=== PATIENT | female | born 1975 | race Caucasian/White ===

== ENCOUNTER → 2016-02-17 | Outpatient (CLI) | payer OTHER ==
[2016-02-17 10:03] LABS: CHOLESTEROL 193.14 mg/dL (0-200); Direct HDL 66 mg/dL (>40); TRIGLYCERIDES 70 mg/dL (<150)
[2016-02-17 10:17] LABS: DIRECT LDL 100 mg/dL (<100)
[2016-02-19 07:56] LABS: HOMOCYST(E)INE PLASMA 7.5 umol/L (0.0-15.0)
== END ==
LOC: OD 08:37
DX: E05.90 Thyrotoxicosis, unspecified without thyrotoxic crisis or storm (principal); F41.9 Anxiety disorder, unspecified; R00.0 Tachycardia, unspecified; E56.9 Vitamin deficiency, unspecified
CPT/HCPCS: 36415; 80061; 83090; 83921

== ENCOUNTER 2016-02-20 05:10 | Emergency (ER) | payer MEDICAID, OTHER ==
[2016-02-20 05:20] VITALS: BP 101/80
--- NOTE | 2016-02-20 06:57 | ER Document Report ---
ED General <ERICH LOJA - Last Filed: 02/20/16 07:19> - General Mode of Arrival: Ambulatory Information source: Patient TRAVEL OUTSIDE OF THE [place] IN LAST 30 DAYS: No - HPI Patient complains to provider of: Arm Pain Onset: Just prior to arrival Onset/Duration: Sudden Associated symptoms: Chest pain, Vomiting Similar symptoms previously: Yes Recently seen / treated by doctor: Yes - [facility] 4x since 02/11/2016 <VICKI ARITA - Last Filed: 02/20/16 07:30> - General Chief Complaint: Arm Pain Stated Complaint: RIGHT SHOULDER/ELBOW PAIN Notes: Patient is a 40-year-old female presenting to the emergency department concerned of the arm pain that extends from her right elbow into her right hand onset early this morning. Patient states the elbow was red and swollen, and the pain is also in her shoulder. Patient mentioned that yesterday she was having intermittent nausea and chest pain, and also that she has been burping more often. Patient eventually admits that her fear is that she is having a heart attack. Patient started Citalopram on Tuesday, and thought maybe her symptoms were due to the new medication. Patient denies every risk factor for heart attack, and finally mentioned that she thinks she might have a heart attack due to stress from trying to raise her four children. Patient has been seen here four times since 02/11/2016 for similar concerns. (VICKI ARITA) - Related Data Allergies/Adverse Reactions: esomeprazole [From Nexium] Allergy (Verified 02/20/16 05:20) latex [Latex] Allergy (Verified 02/20/16 05:20) Hives, difficulty breathing levofloxacin [From Levaquin] Allergy (Verified 02/20/16 05:20) moxifloxacin HCl [From Avelox] Allergy (Verified 02/20/16 05:20) problems with joints, throat swelling erythromycin base [Erythromycin Base] Adverse Reaction (Verified 02/20/16 05:20) hives/vomitting Past Medical History - General Information source: Patient - Social History Smoking Status: Never Smoker Chew tobacco use (# tins/day): No Frequency of alcohol use: None Drug Abuse: None Family History: Reviewed & Not Pertinent, Hyperlipidemia, Hypertension Patient has suicidal ideation: No Patient has homicidal ideation: No Neurological Medical History: Reports: Hx Migraine Endocrine Medical History: Reports: Hx Hyperthyroidism Renal/ Medical History: Reports: Hx Ovarian Cysts GI Medical History: Reports: Hx Gastroesophageal Reflux Disease Psychiatric Medical History: Reports: Hx Anxiety Past Surgical History: Reports: Hx Appendectomy, Hx Gynecologic Surgery - laparoscopy for right ovarian cyst - Immunizations Immunizations up to date: Yes Hx Diphtheria, Pertussis, Tetanus Vaccination: Yes <VICKI ARITA - Last Filed: 02/20/16 07:30> Review of Systems - Review of Systems Constitutional: No symptoms reported EENT: No symptoms reported Cardiovascular: See HPI, Chest pain Respiratory: No symptoms reported Gastrointestinal: See HPI, Nausea Genitourinary: No symptoms reported Female Genitourinary: No symptoms reported Musculoskeletal: See HPI, Other - Right Forearm Pain Skin: No symptoms reported Hematologic/Lymphatic: No symptoms reported Neurological/Psychological: See HPI, Other - Increased Stress -: Yes All other systems reviewed and negative <VICKI ARITA - Last Filed: 02/20/16 07:30> Physical Exam - Vital signs Interpretation: Normal - General General appearance: Appears well, Alert - HEENT Head: Normocephalic, Atraumatic Eyes: Normal Pupils: PERRL - Respiratory Respiratory status: No respiratory distress Chest status: Nontender Breath sounds: Normal Chest palpation: Normal - Cardiovascular Rhythm: Regular Heart sounds: Normal auscultation Murmur: No - Abdominal Inspection: Normal Distension: No distension Bowel sounds: Normal Tenderness: Nontender Organomegaly: No organomegaly - Back Back: Normal, Nontender - Extremities General upper extremity: Normal inspection, Nontender, Normal color, Normal ROM , Normal temperature, Other - No redness or swelling of R. elbow, forearm, hand.. No: Edema General lower extremity: Normal inspection, Nontender, Normal color, Normal ROM , Normal temperature - Neurological Neuro grossly intact: Yes Cognition: Normal [place] Coma Scale Eye Opening: Spontaneous [place] Coma Scale Verbal: Oriented [place] Coma Scale Motor: Obeys Commands [place] Coma Scale Total: 15 Speech: Normal - Psychological Associated symptoms: Normal affect, Tearful - Skin Skin Temperature: Warm Skin Moisture: Dry Skin Color: Normal <VICKI ARITA - Last Filed: 02/20/16 07:30> - Vital signs Vitals: Temp Pulse Resp BP Pulse Ox 97.4 F 92 18 101/80 99 02/20/16 05:20 02/20/16 05:20 02/20/16 05:20 02/20/16 05:20 02/20/16 05:20 (ERICH LOJA) (VICKI ARITA) Course - EKG Interpretation by Nv EKG shows normal: Sinus rhythm, [place], Intervals, QRS Complexes, ST-T Waves Rate: Normal - 91 Rhythm: NSR P Waves: LAE <ERICH LOJA - Last Filed: 02/20/16 07:19> Scribe Documentation - Scribe Written by Delroy:: Vicki Arita 02/20/2016 7:04 AM acting as scribe for :: Thomas <VICKI ARITA - Last Filed: 02/20/16 07:30>
--- NOTE | 2016-02-20 10:20 | EKG REPORT ---
SEVERITY:- BORDERLINE ECG - SINUS RHYTHM PROBABLE LEFT ATRIAL ABNORMALITY : Confirmed by: Cherri Kapoor 20-Feb-2016 10:19:31
== END 2016-02-20 07:22 | disposition home or self-care (01) ==
LOC: ER 05:10
DX: F41.9 Anxiety disorder, unspecified (principal); M25.521 Pain in right elbow; M79.631 Pain in right forearm; R07.9 Chest pain, unspecified; M25.511 Pain in right shoulder; R14.2 Eructation; R11.2 Nausea with vomiting, unspecified; Z88.8 Allergy status to other drugs, medicaments and biological substances; Z91.040 Latex allergy status; Z88.1 Allergy status to other antibiotic agents
CPT/HCPCS: 93005; 93010; 99283

== ENCOUNTER 2016-02-25 00:08 | Emergency (ER) | payer MEDICAID, OTHER ==
[2016-02-25 00:27] VITALS: BP 122/82
--- NOTE | 2016-02-25 03:33 | ER Document Report ---
[id number] ABDOMINAL PAIN Notes: Patient is a 32-year-old female presents for complaints of right upper quadrant abdominal pain that radiates straight her back. She also some pain going to right shoulder blade. Some nausea. No vomiting. No diarrhea. No fevers. Was seen last week for right arm pain. She said that time showing pain in her right arm. She says tonight she started having abdominal pain. No history of gallbladder disease. No history of abdominal surgeries. No other complaints at this time. No dysuria. TRAVEL OUTSIDE OF THE [place] IN LAST 30 DAYS: No - Related Data Allergies/Adverse Reactions: esomeprazole [From Nexium] Allergy (Verified 02/20/16 05:20) latex [Latex] Allergy (Verified 02/20/16 05:20) Hives, difficulty breathing levofloxacin [From Levaquin] Allergy (Verified 02/20/16 05:20) moxifloxacin HCl [From Avelox] Allergy (Verified 02/20/16 05:20) problems with joints, throat swelling erythromycin base [Erythromycin Base] Adverse Reaction (Verified 02/20/16 05:20) hives/vomitting Past Medical History - Social History Smoking Status: Unknown if Ever Smoked Frequency of alcohol use: None Drug Abuse: None Family History: Reviewed & Not Pertinent, Hyperlipidemia, Hypertension Patient has suicidal ideation: No Patient has homicidal ideation: No Neurological Medical History: Reports: Hx Migraine Endocrine Medical History: Reports: Hx Hyperthyroidism Renal/ Medical History: Reports: Hx Ovarian Cysts GI Medical History: Reports: Hx Gastroesophageal Reflux Disease Psychiatric Medical History: Reports: Hx Anxiety Past Surgical History: Reports: Hx Appendectomy, Hx Gynecologic Surgery - laparoscopy for right ovarian cyst - Immunizations Immunizations up to date: Yes Hx Diphtheria, Pertussis, Tetanus Vaccination: Yes Review of Systems - Review of Systems Notes: My Normal Review Basic REVIEW OF SYSTEMS: CONSTITUTIONAL : Denies fever, chills, or sweats. Denies recent illness. EENT: Denies eye, ear, throat, or mouth pain or symptoms. Denies nasal or sinus congestion. CARDIOVASCULAR: Denies chest pain. RESPIRATORY: Denies cough, cold, or chest congestion. Denies shortness of breath, difficulty breathing, or wheezing. GASTROINTESTINAL: Upper quadrant abdominal pain. Some nausea. GENITOURINARY: Denies difficulty urinating, painful urination, burning, frequency, or blood in urine. FEMALE GENITOURINARY: Denies vaginal bleeding, abnormal or irregular periods. LMP: MUSCULOSKELETAL: Right shoulder pain. SKIN: Denies rash or skin lesions. NEUROLOGICAL: Denies altered mental status or loss of consciousness. Denies headache. Denies weakness or paralysis or loss of use of either side. Denies problems with gait or speech. Denies sensory or motor loss. ALL OTHER SYSTEMS REVIEWED AND NEGATIVE. Physical Exam - Vital signs Vitals: Temp Pulse Resp BP Pulse Ox 97.6 F 93 18 122/82 98 02/25/16 00:26 02/25/16 00:26 02/25/16 00:26 02/25/16 00:02/25/16 00:26 - Notes Notes: General Appearance: Well nourished, alert, cooperative, no acute distress, mild obvious discomfort. Vitals: reviewed, See vital signs table. Head: no swelling or tenderness to the head Eyes: PERRL, EOMI, Conjuctiva clear Mouth: No decreasd moisture Lungs: No wheezing, No rales, No rhonci, No accessory muscle use, good air exchange bilaterally. Heart: Normal rate, Regular rythm, No murmur, no rub Abdomen: Normal BS, soft, No rigidity, mild to moderate right upper quadrant abdominal tenderness to palpation., No guarding, no rebound, no abdominal masses , no organomegaly Extremities: strength 5/5 in all extremities, good pulses in all extremities, no swelling or tenderness in the extremities, no edema. No pain with putting the right shoulder through range of motion. Skin: warm, dry, appropriate color, no rash Neuro: speech clear, oriented x 3, normal affect, responds appropriately to questions. Course - Vital Signs Vital signs: Temp Pulse Resp BP Pulse Ox 97.6 F 93 18 122/82 98 02/25/16 00:26 02/25/16 00:26 02/25/16 00:26 02/25/16 00:26 02/25/16 00:26 - Laboratory Result Diagrams: 02/25/16 03:58 02/25/16 03:58 - Transfer of Care Notes: 03/02/16 05:34 Patient has vasectomy gallstones causing her pain. She has no signs infection. She has no leukocytosis. No liver enzyme elevation. Feels she is safe to be discharged home. Discharge was done at the time when the computer system was down. Patient was therefore given paper discharge instructions. I wrote the number to the surgery clinic. Will have her follow-up in surgery clinic. I encourage her to avoid fatty foods or fried foods. Encouraged return to ER if she has worsening pain, vomiting, or feels unwell. Patient agrees with plan and will be discharged home. Dictation of this chart was performed using voice recognition software; therefore, there may be some unintended grammatical errors. Discharge - Discharge Disposition: HOME, SELF-CARE
[2016-02-25 04:13] LABS: ABSOLUTE BASOPHILS # (AUTO) 0.1 10^3/uL (0.0-0.2); ABSOLUTE LYMPHOCYTES (AUTO) 1.8 10^3/uL (0.5-4.7); ABSOLUTE MONOCYTES (AUTO) 0.3 10^3/uL (0.1-1.4); ABSOLUTE NEUT (AUTO) 3.5 10^3/uL (1.7-8.2); EOSINOPHILS % (AUTO) 0.7 % (0-6); HEMATOCRIT 41.9 % (36.0-47.0); HEMOGLOBIN 14.1 g/dL (12.0-15.5); HGB HCT DIFFERENCE 0.4; LYMPHOCYTES % (AUTO) 32.2 % (13-45); MEAN CORPUSCULAR HEMOGLOBIN 29.2 pg (27.0-33.4); MEAN CORPUSCULAR HGB CONC 33.8 g/dL (32.0-36.0); MEAN CORPUSCULAR VOLUME 86 fl (80-97); MONOCYTES % (AUTO) 4.6 % (3-13); RED BLOOD COUNT 4.85 10^6/uL (3.72-5.28); RED CELL DISTRIBUTION WIDTH 13.2 % (11.5-14.0); SEGMENTED NEUTROPHILS % (AUTO) 61.5 % (42-78); WHITE BLOOD COUNT 5.6 10^3/uL (4.0-10.5)
[2016-02-25 07:48] LABS: ALANINE AMINOTRANSFERASE 14 U/L (9-52); ALBUMIN 4.6 g/dL (3.5-5.0); ALKALINE PHOSPHATASE 57 U/L (38-126); ANION GAP 17 (5-19); ASPARTATE AMINO TRANSFERASE 15 U/L (14-36); BILIRUBIN,TOTAL 0.5 mg/dL (0.2-1.3); BLOOD UREA NITROGEN 10 mg/dL (7-20); CALCIUM 9.9 mg/dL (8.4-10.2); CARBON DIOXIDE 27 mmol/L (22-30); CHLORIDE 101 mmol/L (98-107); CREATININE RESULT 0.64 mg/dL (0.52-1.25); GLUCOSE 85 mg/dL (75-110); LIPASE 179.9 U/L (23-300); POTASSIUM 4.3 mmol/L (3.6-5.0); SODIUM 144.6 mmol/L (137-145); TOTAL PROTEIN 7.8 g/dL (6.3-8.2)
--- NOTE | 2016-02-25 13:41 | EKG REPORT ---
SEVERITY:- NORMAL ECG - SINUS RHYTHM : Confirmed by: Franci Espinal MD 25-Feb-2016 13:41:19
== END 2016-02-25 06:30 | disposition home or self-care (01) ==
LOC: ER 00:08
DX: K80.20 Calculus of gallbladder without cholecystitis without obstruction (principal); R10.11 Right upper quadrant pain; R11.0 Nausea; Z88.8 Allergy status to other drugs, medicaments and biological substances; Z91.040 Latex allergy status; Z88.1 Allergy status to other antibiotic agents; Z90.49 Acquired absence of other specified parts of digestive tract; Z87.19 Personal history of other diseases of the digestive system; Z87.42 Personal history of other diseases of the female genital tract
CPT/HCPCS: 36415; 76705; 80053; 83690; 84703; 85025; 93005; 93010; 93976; 99284

== ENCOUNTER 2017-07-29 20:12 | Emergency (ER) | payer BC, MEDICAID ==
[2017-07-29 20:35] VITALS: BP 119/83
[2017-07-29 21:55] LABS: ABSOLUTE BASOPHILS # (AUTO) 0.1 10^3/uL (0.0-0.2); ABSOLUTE EOSINOPHILS # (AUTO) 0.1 10^3/uL (0.0-0.6); ABSOLUTE LYMPHOCYTES (AUTO) 2.3 10^3/uL (0.5-4.7); ABSOLUTE MONOCYTES (AUTO) 0.5 10^3/uL (0.1-1.4); ABSOLUTE NEUT (AUTO) 4.8 10^3/uL (1.7-8.2); EOSINOPHILS % (AUTO) 1.6 % (0-6); HEMATOCRIT 39.1 % (36.0-47.0); HEMOGLOBIN 13.2 g/dL (12.0-15.5); LYMPHOCYTES % (AUTO) 29.5 % (13-45); MEAN CORPUSCULAR HGB CONC 33.9 g/dL (32.0-36.0); MEAN CORPUSCULAR VOLUME 89 fl (80-97); MONOCYTES % (AUTO) 6.1 % (3-13); PLATELET COUNT 283 10^3/uL (150-450); RED BLOOD COUNT 4.42 10^6/uL (3.72-5.28); RED CELL DISTRIBUTION WIDTH 14.1 % (11.5-14.0); SEGMENTED NEUTROPHILS % (AUTO) 61.8 % (42-78); TOTAL CELLS COUNTED % (AUTO) 100 %; WHITE BLOOD COUNT 7.7 10^3/uL (4.0-10.5)
[2017-07-29 22:05] LABS: ALANINE AMINOTRANSFERASE 16 U/L (9-52); ALBUMIN 4.3 g/dL (3.5-5.0); ALKALINE PHOSPHATASE 48 U/L (38-126); ANION GAP 12 (5-19); ASPARTATE AMINO TRANSFERASE 17 U/L (14-36); BILIRUBIN,DIRECT 0.2 mg/dL (0.0-0.4); BILIRUBIN,TOTAL 0.4 mg/dL (0.2-1.3); BLOOD UREA NITROGEN 13 mg/dL (7-20); CALCIUM 9.2 mg/dL (8.4-10.2); CARBON DIOXIDE 27 mmol/L (22-30); CHLORIDE 103 mmol/L (98-107); CREATINE KINASE 51 U/L (30-135); GLUCOSE 119 mg/dL (75-110); POTASSIUM 3.6 mmol/L (3.6-5.0); TOTAL PROTEIN 7.4 g/dL (6.3-8.2)
[2017-07-29 22:17] LABS: CREATINE KINASE MB < 0.22 ng/mL (<4.55); TROPONIN I < 0.012 ng/mL
--- NOTE | 2017-07-29 22:22 | RADIOLOGY REPORT (SQ) ---
EXAM DESCRIPTION: CHEST SINGLE VIEW COMPLETED DATE/TIME: 07/29/2017 10:03 pm REASON FOR STUDY: chest pain COMPARISON: 12/12/2016 EXAM PARAMETERS: NUMBER OF VIEWS: One view. TECHNIQUE: Single frontal radiographic view of the chest acquired. RADIATION DOSE: NA LIMITATIONS: None. FINDINGS: LUNGS AND PLEURA: No acute opacities, masses or pneumothorax. Few scattered calcified gra nulomas. No pleural effusion. MEDIASTINUM AND HILAR STRUCTURES: No masses. Contour normal. HEART AND VASCULAR STRUCTURES: Heart normal in size. Normal vasculature. BONES: No acute findings. HARDWARE: None in the chest. OTHER: No other significant finding. IMPRESSION: NO ACUTE RADIOGRAPHIC FINDING IN THE CHEST. TECHNICAL DOCUMENTATION: JOB ID: [id number] 2010 [employer]- All Rights Reserved Reading location - IP/workstation name: [email or web address]
--- NOTE | 2017-07-29 23:36 | EKG REPORT ---
SEVERITY:- NORMAL ECG - SINUS RHYTHM : Confirmed by: Joseph Ornelas MD 29-Jul-2017 23:36:06
--- NOTE | 2017-07-30 01:27 | ER Document Report ---
ED Cardiac - General Chief Complaint: Chest Pain Stated Complaint: CHEST PAIN Time Seen by Provider: 07/29/17 22:03 Mode of Arrival: Ambulatory Information source: Patient Notes: 42-year-old female patient presents with complaint of intermittent epigastric and chest pain since Tuesday. Patient reports that the pain feels sharp and stabbing and is worse after eating. Patient reports that she thought it was acid reflux however she became concerned because she felt that the pain was radiating over towards her left breast this evening. Patient denies any associated symptoms to include nausea, vomiting, diaphoresis, shortness of breath or radiation of the pain other than just left of her sternum. Patient denies any daily medication use. Patient reports that she has had an appendectomy, surgery for an ovarian cyst removal and that she take Zantac occasionally at home. Patient denies the use of any control pills, is a non-smoker and denies any recent travel. Patient reports that she has not had any of her epigastric/chest pain since her arrival to the emergency department and patient remains chest pain-free upon my interview. TRAVEL OUTSIDE OF THE [place] IN LAST 30 DAYS: No - Related Data Allergies/Adverse Reactions: esomeprazole [From Nexium] Allergy (Verified 02/20/16 05:20) latex [Latex] Allergy (Verified 02/20/16 05:20) Hives, difficulty breathing levofloxacin [From Levaquin] Allergy (Verified 02/20/16 05:20) moxifloxacin HCl [From Avelox] Allergy (Verified 02/20/16 05:20) problems with joints, throat swelling Sulfa (Sulfonamide Antibiotics) Allergy (Verified 12/12/16 03:56) erythromycin base [Erythromycin Base] Adverse Reaction (Verified 02/20/16 05:20) hives/vomitting Past Medical History - General Information source: Patient - Social History Smoking Status: Never Smoker Frequency of alcohol use: None Drug Abuse: None Lives with: Family Family History: Reviewed & Not Pertinent, Hyperlipidemia, Hypertension Patient has suicidal ideation: No Patient has homicidal ideation: No Neurological Medical History: Reports: Hx Migraine Endocrine Medical History: Reports: Hx Hyperthyroidism Renal/ Medical History: Reports: Hx Ovarian Cysts. Denies: Hx Peritoneal Dialysis GI Medical History: Reports: Hx Gastroesophageal Reflux Disease Psychiatric Medical History: Reports: Hx Anxiety Past Surgical History: Reports: Hx Appendectomy, Hx Gynecologic Surgery - laparoscopy for right ovarian cyst - Immunizations Immunizations up to date: Yes Hx Diphtheria, Pertussis, Tetanus Vaccination: Yes Review of Systems - Review of Systems Constitutional: No symptoms reported EENT: No symptoms reported Cardiovascular: See HPI Respiratory: No symptoms reported Gastrointestinal: No symptoms reported Genitourinary: No symptoms reported Female Genitourinary: No symptoms reported Musculoskeletal: No symptoms reported Skin: No symptoms reported Hematologic/Lymphatic: No symptoms reported Neurological/Psychological: No symptoms reported Physical Exam - Vital signs Vitals: Temp Pulse Resp BP Pulse Ox 99.1 F 96 20 119/83 99 07/29/17 20:34 07/29/17 20:34 07/29/17 20:34 07/29/17 20:34 07/29/17 20:34 - Notes Notes: PHYSICAL EXAMINATION: GENERAL: Well-appearing, well-nourished and in no acute distress. HEAD: Atraumatic, normocephalic. EYES: Pupils equal round and reactive to light, extraocular movements intact, conjunctiva are normal. ENT: Nares patent, oropharynx clear without exudates. Moist mucous membranes. NECK: Normal range of motion, supple without lymphadenopathy LUNGS: Breath sounds clear to auscultation bilaterally and equal. No wheezes rales or rhonchi. HEART: Regular rate and rhythm without murmurs ABDOMEN: Soft, nontender, nondistended abdomen. No guarding, no rebound. No masses appreciated. Female : deferred Musculoskeletal: Normal range of motion, no pitting or edema. No cyanosis. NEUROLOGICAL: Cranial nerves grossly intact. Normal speech, normal gait. Normal sensory, motor exams PSYCH: Normal mood, normal affect. SKIN: Warm, Dry, normal turgor, no rashes or lesions noted. Course - Re-evaluation Re-evalutation: Otherwise healthy 42-year-old female presenting with complaint of epigastric/ chest pain that has been intermittent since Tuesday. Patient reports no pain at this time. Initial cardiac workup was ordered by triage provider. Chest x- ray is unremarkable. EKG reveals a sinus rhythm with a rate of 81, normal axis , no ST segment elevations or depressions. CBC and comprehensive metabolic panel are unremarkable. Initial troponin is negative. Low suspicion of ACS. Patient denies any shortness of breath, does not use any hormonal control , has not had any recent travel and is a non-smoker so low likelihood of a blood clot. Due to patient's age will draw a delta troponin with plans to discharge home. Patient has not been medicated with any staying here in the emergency department as patient has remained asymptomatic and has not had any pain whatsoever. Patient's heart score is 0. Patient is PERC negative. Repeat troponin is negative. Patient's vital signs are within normal limits. Patient will be discharged home with plan to follow with her primary care provider if her pain persists. Patient instructed to return to the emergency department if she develops worsening chest pain, accompanied by shortness of breath, nausea, diaphoresis or any other symptoms that are concerning to her. - Vital Signs Vital signs: Temp Pulse Resp BP Pulse Ox 99.1 F 84 19 119/83 98 07/29/17 20:34 07/29/17 21:37 07/30/17 01:00 07/29/17 20:34 07/30/17 01:00 - Laboratory Result Diagrams: 07/29/17 21:37 07/29/17 21:37 Laboratory results interpreted by me: 07/29/17 07/29/17 21:37 21:37 RDW 14.1 H Glucose 119 H Discharge - Discharge Clinical Impression: Chest pain Qualifiers: Chest pain type: unspecified Qualified Code(s): R07.9 - Chest pain, unspecified Condition: Stable Disposition: HOME, SELF-CARE Additional Instructions: Chest Pain of Unclear Cause The exact cause of your chest pain isn't clear. Fortunately, there is no evidence of a dangerous medical condition. Further testing may be required to find the source of the pain. Most often, we find that this pain is coming from the chest wall -- the muscles or rib joints in the chest. But chest pain can come from the lung and lung lining, the esophagus, the heart valves or heart lining, and even the stomach or gallbladder. Rest. Eat lightly until the pain is gone. We may prescribe medicine for pain and inflammation. You should call the physician immediately if the pain radiates to the shoulder, jaw or arms; if you start to run a fever or develop a cough; or if you develop shortness of breath, or other new or alarming symptoms. Please follow-up with your primary care provider, call Tuesday for an appointment. Your workup today was completely normal. Please return to the emergency department if you develop worsening chest pain that is accompanied by nausea, vomiting, diaphoresis or shortness of breath. Please feel free to return for any other symptoms that are of concern to you. Referrals: ANTONIA PETERS MD [Primary Care Provider] - Follow up as needed
== END 2017-07-30 01:35 | disposition home or self-care (01) ==
LOC: ER 20:12
DX: R07.9 Chest pain, unspecified (principal); R10.13 Epigastric pain
CPT/HCPCS: 36415; 71045; 80053; 82550; 82553; 84484; 85025; 93005; 93010; 99285

== ENCOUNTER 2018-03-17 16:40 | Emergency (ER) | payer BC ==
[2018-03-17 16:52] VITALS: BP 108/73
--- NOTE | 2018-03-17 17:34 | ER Document Report ---
ED Medical Screen (RME) - General Chief Complaint: Abdominal Cramping Stated Complaint: VAGINAL BLEEDING WITH Time Seen by Provider: 03/17/18 17:31 Primary Care Provider: ANTONIA PETERS MD [Primary Care Provider] - Follow up as needed Notes: Patient says that she is approximately 4 weeks , her seventh , and she is developed some cramping and spotting since about 1 PM today. Has not been sick in any other way. Has not had any care or ultrasound yet. Patient had 3+ tests at home. TRAVEL OUTSIDE OF THE [place] IN LAST 30 DAYS: No - Related Data Allergies/Adverse Reactions: esomeprazole [From Nexium] Allergy (Verified 03/17/18 16:42) latex [Latex] Allergy (Verified 03/17/18 16:42) Hives, difficulty breathing levofloxacin [From Levaquin] Allergy (Verified 03/17/18 16:42) moxifloxacin HCl [From Avelox] Allergy (Verified 03/17/18 16:42) problems with joints, throat swelling Sulfa (Sulfonamide Antibiotics) Allergy (Verified 03/17/18 16:42) erythromycin base [Erythromycin Base] Adverse Reaction (Verified 03/17/18 16:42) hives/vomitting sulfa Allergy (Uncoded 03/17/18 16:42) Past Medical History - Social History Cigarette use (# per day): No Family history: Reviewed & Not Pertinent Neurological Medical History: Reports: Hx Migraine Endocrine Medical History: Reports: Hx Hyperthyroidism Renal/ Medical History: Reports: Hx Ovarian Cysts GI Medical History: Reports: Hx Gastroesophageal Reflux Disease Psychiatric Medical History: Reports: Hx Anxiety Past Surgical History: Reports: Hx Appendectomy, Hx Gynecologic Surgery - laparoscopy for right ovarian cyst - Immunizations Immunizations up to date: Yes Hx Diphtheria, Pertussis, Tetanus Vaccination: Yes Review of Systems - Review of Systems Notes: REVIEW OF SYSTEMS: CONSTITUTIONAL : Denies fever. EENT: Denies eye, ear, nose or mouth or throat pain or other symptoms. CARDIOVASCULAR: Denies chest pain. RESPIRATORY: Denies cough, chest congestion, or shortness of breath. GASTROINTESTINAL: Denies abdominal pain or nausea, vomiting, or diarrhea. GENITOURINARY: Denies difficulty or painful urinating, urinary frequency, blood in urine. MUSCULOSKELETAL: Denies back or neck pain. Denies joint pain or swelling. SKIN: Denies rash or skin lesions. ALL OTHER SYSTEMS REVIEWED AND NEGATIVE. Physical Exam - Vital signs Vitals: Temp Pulse Resp BP Pulse Ox 98.6 F 81 15 108/73 99 03/17/18 16:50 03/17/18 16:50 03/17/18 16:50 03/17/18 16:50 03/17/18 16:50 Interpretation: Normal Notes: PHYSICAL EXAMINATION: GENERAL: Well-appearing, in no acute distress. Vital signs are all essentially normal. HEAD: Atraumatic, normocephalic. NECK: Normal range of motion, supple. LUNGS: Breath sounds clear and equal bilaterally. HEART: Regular rate and rhythm without murmurs. ABDOMEN: Soft, minimally tender throughout. No guarding or rebound. No masses. BACK: No tenderness throughout entire back. EXTREMITIES: Normal range of motion without pain. NEUROLOGICAL: Normal speech, normal gait. Normal sensory, motor, and reflex exams. Awake, alert, and oriented x3. PSYCH: Normal mood, normal affect. SKIN: Warm, dry, no rashes. Course - Re-evaluation Re-evalutation: 03/17/18 21:01 Patient's test came back negative with a quantitative beta hCG of only 4.5 which is less than the trigger for the positive result. Her blood type is O+ so she does not need RhoGam. - Vital Signs Vital signs: Temp Pulse Resp BP Pulse Ox 98.6 F 81 15 108/73 99 03/17/18 16:50 03/17/18 16:50 03/17/18 16:50 03/17/18 16:50 03/17/18 16:50 - Laboratory Result Diagrams: 03/17/18 18:56 - Diagnostic Test Radiology reviewed: Image reviewed, Reports reviewed - Ultrasound showed no evidence of in the uterus or outside the uterus. Doctor's Discharge - Discharge Clinical Impression: Vaginal bleeding Condition: Stable Disposition: HOME, SELF-CARE Additional Instructions: VAGINAL BLEEDING: You are having an episode of abnormal bleeding. Causes of abnormal vaginal bleeding can include miscarriage or tubal , tumors such as cancer or benign fibroids, medication effects, or hormone imbalance. Testing can eliminate unsuspected , tumors, or infection as a cause. "Dysfunctional uterine bleeding" is due to hormone imbalance, and is especially common at times when the normal cycle is disturbed -- whether by recent , use of control pills or hormones, or impending menopause. If the bleeding is innocent, most commonly a short course of hormones is given to restore the uterus to normal. Sometimes, the normal menstrual cycle corrects itself naturally. Sometimes, brief hormone therapy, or even a D&C is required. Your physician will advise you. Treatment for anemia may be required if bleeding is severe. You should rest and avoid intercourse until the bleeding is controlled. Call the doctor or return for re-examination if you feel faint, have increasing pain, or have a major increase in the amount of bleeding. Your tests are negative. Your ultrasound was also normal without any evidence of . NORMAL EXAM AND WORKUP: At this time, except for vaginal bleeding, your examination and workup show no significant abnormality. No significant abnormal physical findings were noted. All laboratory, EKG, and imaging (x-ray, CT scans, ultrasound) studies that were ordered show no significant abnormality. Although your examination and all studies that were ordered showed no significant abnormal finding, there are no examinations and no studies that are 100% accurate. There is always the possibility that some abnormality could exist and not be detected with physical examination or within the limits and capabilities of laboratory and other studies. You should return or follow up as you were instructed on your visit today for further evaluation if your symptoms do not resolve. FOLLOW-UP CARE: If you have been referred to a physician for follow-up care, call the physicians office for an appointment as you were instructed or within the next two days. If you experience worsening or a significant change in your symptoms (very heavy bleeding with large clots of blood, passage of tissue, more severe abdominal / pelvic pain or cramping, feeling faint or severe weakness, fever, etc.), notify the physician immediately or return to the Emergency Department at any time for re-evaluation. OBSTETRIC-GYNECOLOGIC ([facility]) [facility] IN [place]: [facility] [address] [place] [address] [phone] Referrals: ANTONIA PETERS MD [Primary Care Provider] - Follow up as needed
[2018-03-17 19:26] LABS: ABSOLUTE BASOPHILS # (AUTO) 0.1 10^3/uL (0.0-0.2); ABSOLUTE EOSINOPHILS # (AUTO) 0.1 10^3/uL (0.0-0.6); ABSOLUTE LYMPHOCYTES (AUTO) 2.7 10^3/uL (0.5-4.7); ABSOLUTE MONOCYTES (AUTO) 0.4 10^3/uL (0.1-1.4); ABSOLUTE NEUT (AUTO) 4.3 10^3/uL (1.7-8.2); BASOPHILS % (AUTO) 1.7 % (0-2); EOSINOPHILS % (AUTO) 1.8 % (0-6); HEMATOCRIT 37.7 % (36.0-47.0); HEMOGLOBIN 13.1 g/dL (12.0-15.5); LYMPHOCYTES % (AUTO) 35.5 % (13-45); MEAN CORPUSCULAR HEMOGLOBIN 30.6 pg (27.0-33.4); MEAN CORPUSCULAR HGB CONC 34.7 g/dL (32.0-36.0); MEAN CORPUSCULAR VOLUME 88 fl (80-97); MONOCYTES % (AUTO) 5.5 % (3-13); PLATELET COUNT 279 10^3/uL (150-450); RED BLOOD COUNT 4.28 10^6/uL (3.72-5.28); RED CELL DISTRIBUTION WIDTH 13.5 % (11.5-14.0); SEGMENTED NEUTROPHILS % (AUTO) 55.5 % (42-78); TOTAL CELLS COUNTED % (AUTO) 100 %; WHITE BLOOD COUNT 7.7 10^3/uL (4.0-10.5)
--- NOTE | 2018-03-17 19:42 | RADIOLOGY REPORT (SQ) ---
EXAM DESCRIPTION: U/S OB TRANSVAGINAL W/O DOP COMPLETED DATE/TIME: 03/17/2018 7:22 pm REASON FOR STUDY: with vaginal bleeding and cramping COMPARISON: None. TECHNIQUE: Transvaginal static and realtime grayscale images acquired of the pelvis. Additional sierra cted spectral and color Doppler images recorded. All images stored on PACs. CLINICAL AGE: 4 weeks BHCG: Pending. LIMITATIONS: None. FINDINGS: UTERUS: No visualized intrauterine . RIGHT ADNEXA: Ovary not identified due to poor acoustical window. No adnexal free fluid. No adnexal masses. LEFT ADNEXA: Normal ovary with normal vascular flow. No adnexal free fluid. No adnexal masses. FREE FLUID: None. OTHER: No other significant finding. IMPRESSION: NO VISUALIZED INTRA- OR EXTRAUTERINE . bHCG LEVEL NOT AVAILABLE FOR CORRELATION WITH US FINDINGS. ECTOPIC CANNOT BE EXCLUDED. FOLLOW-UP ULTRASOUND AND SERIAL BHCG LEVELS STRONGLY RECOMMENDED TO ACCURATELY ASSESS STATU S. TECHNICAL DOCUMENTATION: JOB ID: [id number] [employer]- All Rights Reserved Reading location - IP/workstation name: [email or web address]
== END 2018-03-17 20:08 | disposition home or self-care (01) ==
LOC: ER 16:40
DX: N93.9 Abnormal uterine and vaginal bleeding, unspecified (principal); R10.9 Unspecified abdominal pain
CPT/HCPCS: 36415; 76817; 84702; 85025; 86900; 86901; 99284

== ENCOUNTER 2018-05-02 18:34 | Emergency (ER) | payer BC ==
--- NOTE | 2018-05-02 19:42 | ER Document Report ---
ED Medical Screen (RME) - General Chief Complaint: Vaginal Bleeding Stated Complaint: CRAMPING Time Seen by Provider: 05/02/18 19:33 Primary Care Provider: ANTONIA PETERS MD [Primary Care Provider] - Follow up as needed TRAVEL OUTSIDE OF THE [place] IN LAST 30 DAYS: No - HPI Notes: 05/02/18 19:41 Patient is a 43-year-old female that presents to the emergency department for chief complaint of vaginal bleeding in . Patient is G 10 P4. She had a miscarriage last month and then a positive test on 04/15. [facility] She was seen yesterday and had a beta-hCG level of 300. She was told to return in a few days for repeat hCG and if she has any increased bleeding to come to the emergency room. She states that her bleeding today became much more heavy and is not gushes. I did discuss her case today with Dr. Garcia who states if her beta hCG level is increasing that she would recommend ultrasound today but if it is less than 300 ultrasound is not necessary and they will follow in the office ROS: GENERAL: Denies fever of chills CV: Denies chest pain PHYSICAL EXAMINATION: GENERAL: Well-appearing, well-nourished and in no acute distress. HEAD: Atraumatic, normocephalic. EYES: Pupils equal round extraocular movements intact, conjunctiva are normal. ENT: Nares patent NECK: Normal range of motion LUNGS: No respiratory distress Musculoskeletal: Normal range of motion NEUROLOGICAL: Normal speech, normal gait. PSYCH: Normal mood, normal affect. MDM: Patient seen and examined for rapid initial assessment. Vital signs reviewed. A comprehensive ED assessment and evaluation of the patient, analysis of test results and completion of the medical decision making process will be conducted by additional ED providers. - Related Data Allergies/Adverse Reactions: esomeprazole [From Nexium] Allergy (Verified 03/17/18 16:42) latex [Latex] Allergy (Verified 03/17/18 16:42) Hives, difficulty breathing levofloxacin [From Levaquin] Allergy (Verified 03/17/18 16:42) moxifloxacin HCl [From Avelox] Allergy (Verified 03/17/18 16:42) problems with joints, throat swelling Sulfa (Sulfonamide Antibiotics) Allergy (Verified 03/17/18 16:42) erythromycin base [Erythromycin Base] Adverse Reaction (Verified 03/17/18 16:42) hives/vomitting sulfa Allergy (Uncoded 03/17/18 16:42) Past Medical History - Social History Family history: Reviewed & Not Pertinent Neurological Medical History: Reports: Hx Migraine Endocrine Medical History: Reports: Hx Hyperthyroidism Renal/ Medical History: Reports: Hx Ovarian Cysts. Denies: Hx Peritoneal Dialysis GI Medical History: Reports: Hx Gastroesophageal Reflux Disease Psychiatric Medical History: Reports: Hx Anxiety Past Surgical History: Reports: Hx Appendectomy, Hx Gynecologic Surgery - laparoscopy for right ovarian cyst - Immunizations Immunizations up to date: Yes Hx Diphtheria, Pertussis, Tetanus Vaccination: Yes Physical Exam - Vital signs Vitals: Temp Pulse Resp BP Pulse Ox 98.4 F 95 18 113/64 99 05/02/18 18:48 05/02/18 18:48 05/02/18 18:48 05/02/18 18:48 05/02/18 18:48 Course - Vital Signs Vital signs: Temp Pulse Resp BP Pulse Ox 98.4 F 95 18 113/64 99 05/02/18 18:48 05/02/18 18:48 05/02/18 18:48 05/02/18 18:48 05/02/18 18:48 Doctor's Discharge - Discharge Referrals: ANTONIA PETERS MD [Primary Care Provider] - Follow up as needed
[2018-05-02 20:15] LABS: ABSOLUTE BASOPHILS # (AUTO) 0.1 10^3/uL (0.0-0.2); ABSOLUTE EOSINOPHILS # (AUTO) 0.2 10^3/uL (0.0-0.6); ABSOLUTE LYMPHOCYTES (AUTO) 2.3 10^3/uL (0.5-4.7); ABSOLUTE MONOCYTES (AUTO) 0.6 10^3/uL (0.1-1.4); ABSOLUTE NEUT (AUTO) 5.1 10^3/uL (1.7-8.2); BASOPHILS % (AUTO) 1.2 % (0-2); EOSINOPHILS % (AUTO) 2.2 % (0-6); HEMATOCRIT 39.6 % (36.0-47.0); HEMOGLOBIN 13.7 g/dL (12.0-15.5); LYMPHOCYTES % (AUTO) 28.2 % (13-45); MEAN CORPUSCULAR HEMOGLOBIN 30.5 pg (27.0-33.4); MEAN CORPUSCULAR HGB CONC 34.5 g/dL (32.0-36.0); MEAN CORPUSCULAR VOLUME 89 fl (80-97); MONOCYTES % (AUTO) 6.9 % (3-13); PLATELET COUNT 307 10^3/uL (150-450); RED BLOOD COUNT 4.48 10^6/uL (3.72-5.28); RED CELL DISTRIBUTION WIDTH 14.6 % (11.5-14.0); SEGMENTED NEUTROPHILS % (AUTO) 61.5 % (42-78); TOTAL CELLS COUNTED % (AUTO) 100 %; WHITE BLOOD COUNT 8.3 10^3/uL (4.0-10.5)
[2018-05-02 20:22] LABS: APPEARANCE,URINE SLIGHTLY-CLOUDY; BILIRUBIN,URINE NEGATIVE (NEGATIVE); COLOR,URINE YELLOW; GLUCOSE, URINE NEGATIVE (NEGATIVE); KETONES,URINE NEGATIVE (NEGATIVE); LEUKOCYTE ESTERASE,URINE NEGATIVE (NEGATIVE); NITRITE,URINE NEGATIVE (NEGATIVE); PROTEIN,URINE NEGATIVE (NEGATIVE); URINE SPECIFIC GRAVITY 1.025
--- NOTE | 2018-05-02 20:34 | ER Document Report ---
ED GI/ - General Chief Complaint: Vaginal Bleeding Stated Complaint: CRAMPING Time Seen by Provider: 05/02/18 19:33 Primary Care Provider: ANTONIA PETERS MD [NO LOCAL MD] - Follow up as needed Notes: Patient is a 43-year-old female, G 10 P4 at uncertain gestation because of recent miscarriage last month and then a positive test on April 15, that comes emergency department for chief complaint of vaginal bleeding, cramping, and pain radiating around to her right flank. She states she was seen yesterday and had a beta hCG level drawn, she states she was instructed to return in several days for repeat hCG and to come to the ED if she worsens. She states because of her increased bleeding and pain she came in tonight to be evaluated. TRAVEL OUTSIDE OF THE [place] IN LAST 30 DAYS: No - Related Data Allergies/Adverse Reactions: esomeprazole [From Nexium] Allergy (Verified 03/17/18 16:42) latex [Latex] Allergy (Verified 03/17/18 16:42) Hives, difficulty breathing levofloxacin [From Levaquin] Allergy (Verified 03/17/18 16:42) moxifloxacin HCl [From Avelox] Allergy (Verified 03/17/18 16:42) problems with joints, throat swelling Sulfa (Sulfonamide Antibiotics) Allergy (Verified 03/17/18 16:42) erythromycin base [Erythromycin Base] Adverse Reaction (Verified 03/17/18 16:42) hives/vomitting sulfa Allergy (Uncoded 03/17/18 16:42) Past Medical History - General Information source: Patient - Social History Smoking Status: Never Smoker Frequency of alcohol use: None Drug Abuse: None Lives with: Family Family History: Reviewed & Not Pertinent, Hyperlipidemia, Hypertension Patient has suicidal ideation: No Patient has homicidal ideation: No Neurological Medical History: Reports: Hx Migraine Endocrine Medical History: Reports: Hx Hyperthyroidism Renal/ Medical History: Reports: Hx Ovarian Cysts. Denies: Hx Peritoneal Dialysis GI Medical History: Reports: Hx Gastroesophageal Reflux Disease Psychiatric Medical History: Reports: Hx Anxiety Past Surgical History: Reports: Hx Appendectomy, Hx Gynecologic Surgery - laparoscopy for right ovarian cyst - Immunizations Immunizations up to date: Yes Hx Diphtheria, Pertussis, Tetanus Vaccination: Yes Review of Systems - Review of Systems Constitutional: No symptoms reported EENT: No symptoms reported Cardiovascular: No symptoms reported Respiratory: No symptoms reported Gastrointestinal: See HPI Genitourinary: See HPI Female Genitourinary: See HPI Musculoskeletal: No symptoms reported Skin: No symptoms reported Hematologic/Lymphatic: No symptoms reported Neurological/Psychological: No symptoms reported Physical Exam - Vital signs Vitals: Temp Pulse Resp BP Pulse Ox 98.4 F 95 18 113/64 99 05/02/18 18:48 05/02/18 18:48 05/02/18 18:48 05/02/18 18:48 05/02/18 18:48 - Notes Notes: GENERAL: Alert, interacts well. No acute distress. HEAD: Normocephalic, atraumatic. EYES: Pupils equal, round, and reactive to light. Extraocular movements intact. ENT: Oral mucosa moist, tongue midline. Oropharynx unremarkable. Airway patent. Nares patent, no nasal septal hematoma, TM's intact. NECK: Full range of motion. Supple. Trachea midline. LUNGS: Clear to auscultation bilaterally, no wheezes, rales, or rhonchi. No respiratory distress. HEART: Regular rate and rhythm. No murmur ABDOMEN: Tenderness over the lower abdomen generally, slightly worse on the right side, no guarding or rigidity, otherwise unremarkable. GENITOURINARY: No external abnormalities noted, no noted heavy bleeding. EXTREMITIES: Moves all 4 extremities spontaneously. No edema, normal radial and dorsalis pedis pulses bilaterally. No cyanosis. BACK: no cervical, thoracic, lumbar midline tenderness. No saddle anesthesia, normal distal neurovascular exam. NEUROLOGICAL: Alert and oriented x3. Normal speech. [cranial nerves II through XII grossly intact]. PSYCH: Normal affect, normal mood. SKIN: Warm, dry, normal turgor. No rashes or lesions noted. Course - Re-evaluation Re-evalutation: Triage provider already spoke to Dr. Garcia, recommended ultrasound if beta- hCG is increasing, this is still pending. Patient does have pain in the mid to right lower quadrant on examination. She does have a history of large ovarian cysts with removal. Patient reports hCG of 300, now it is 311. This is not encouraging but it is increasing. Ultrasound was performed and does show IUP at 5 weeks without any obvious noted abnormality. Patient is not bleeding on my reevaluation. Patient had blood testing yesterday, O+, RhoGam is not indicated. CBC unremarkable. Urinalysis unremarkable. I called and spoke with Dr. Garcia, reported the results, afterwards discussed with patient the recommendations, follow-up, return precautions. Patient states understanding and agreement. - Vital Signs Vital signs: Temp Pulse Resp BP Pulse Ox 98.1 F 82 17 113/78 99 05/02/18 23:35 05/02/18 23:35 05/02/18 23:35 05/02/18 23:35 05/02/18 23:35 - Laboratory Result Diagrams: 05/02/18 20:05 Laboratory results interpreted by me: 05/02/18 05/02/18 05/02/18 20:05 20:05 20:05 RDW 14.6 H Beta HCG, Quant 311.77 H Urine Urobilinogen 2.0 H Discharge - Discharge Clinical Impression: Vaginal bleeding affecting early Condition: Stable Disposition: HOME, SELF-CARE Additional Instructions: Your HCG is somewhat low, but there is a seen in the uterus measuring at [address] I did contact Dr. Garcia with this information. Call tomorrow to establish your close followup for monitoring. I recommend pelvic rest, avoid heavy physical activity, sexual intercourse, until cleared by [employer]. There is still a chance that you proceed to a miscarriage, return if you develop severe pain, fever, heavy bleeding beyond expectation or with dizziness or passing out, etc. Forms: Return to Work Referrals: ANTONIA PETERS MD [NO LOCAL MD] - Follow up as needed
--- NOTE | 2018-05-02 23:00 | RADIOLOGY REPORT (SQ) ---
EXAM DESCRIPTION: US TRANSVAGINAL COMPLETED DATE/TME: 05/02/2018 21:10 CLINICAL HISTORY: 43 years, Female, mid/right pelvic pain, +HCG, hx cysts, bleeding COMPARISON: 03/17/2018 ultrasound TECHNIQUE: Transverse and longitudinal transvaginal sonographic images in a first trimester patient LIMITATIONS: None. FINDINGS: The uterus measures 12 x 7 x 6 cm. There is a intrauterine gestational sac. A yolk sac or pole is not visualized. Current ultrasound age based on a mean sac diameter of 0.32 cm is 5 weeks 0 days. The maternal right ovary measures 3 x 2 x 2 cm, the left 3 x 3 x 2 cm. No adnexal cyst or mass. Normal flow to each ovary. No free fluid IMPRESSION: Intrauterine gestational sac with no pole or yolk sac at this time. Close obstetric follow-up recommended. Correlate with beta hCG levels. Current ultrasound age is 5 weeks 0 days copyright 2010 [employer]- All Rights Reserved
[2018-05-02 23:35] VITALS: BP 113/78
== END 2018-05-02 23:35 | disposition home or self-care (01) ==
LOC: ER 18:34
DX: O20.9 Hemorrhage in early pregnancy, unspecified (principal); O26.891 Other specified pregnancy related conditions, first trimester; R10.31 Right lower quadrant pain; Z3A.01 Less than 8 weeks gestation of pregnancy; Z87.59 Personal history of other complications of pregnancy, childbirth and the puerperium; Z88.8 Allergy status to other drugs, medicaments and biological substances; Z91.040 Latex allergy status; Z88.1 Allergy status to other antibiotic agents; Z88.2 Allergy status to sulfonamides; Z87.42 Personal history of other diseases of the female genital tract
CPT/HCPCS: 36415; 76817; 81001; 84702; 85025; 93976; 99284

== ENCOUNTER → 2019-04-18 | Outpatient (CLI) | payer SELFPAY ==
--- NOTE | 2019-04-18 15:46 | RADIOLOGY REPORT (SQ) ---
EXAM DESCRIPTION: U/S [id number] TRNABD 1GES W/ODOP COMPLETED DATE/TIME: 04/18/2019 3:23 pm REASON FOR STUDY: Z34.81 ENCOUNTER FOR SUPRVSN OF NORMAL , FIRST TRIMESTER Z34.81 ENCOUNTE R FOR SUPRVSN OF NORMAL , FIRST TRIM COMPARISON: None. TECHNIQUE: Transabdominal static and realtime grayscale images acquired of the pelvis. Additional se lected spectral and color Doppler images recorded. All images stored on PACs. CLINICAL DATES: LMP 02/07/2019. DOROTHY based on LMP 11/14/2019. EGA based on LMP 10 weeks 0 days. LIMITATIONS: None. FINDINGS: FETUS: Single Living intrauterine . ULTRASOUND EGA: 9 weeks 0 days. ULTRASOUND DOROTHY: 11/21/2019. CRL: 2.3 cm. FHR: None detected. SUBCHORIONIC BLEED: There is a hypoechoic area adjacent to gestational sac that measures 3.1 x 2 x 1. 9 cm. UTERUS: The uterus measures 11.8 x 9.1 x 7.6 cm. There is an intrauterine gestational sac that conta ins an embryo without cardiac activity. CERVICAL LENGTH: 2.8 cm. Closed. RIGHT ADNEXA: The right ovary measures 3.1 x 2.4 x 1.8 cm. There is no adnexal mass. LEFT ADNEXA: The left ovary measures 2.4 x 2 x 1.5 cm. There is no adnexal mass. FREE FLUID: None. OTHER: No other finding. IMPRESSION: Findings consistent with a failed early TECHNICAL DOCUMENTATION: JOB ID: [id number] 2010 [employer]- All Rights Reserved Reading location - IP/workstation name: [email or web address]
== END ==
LOC: RAD 14:47
PROVIDERS: ATTEND Nurse Practitioner Family
DX: Z34.81 Encounter for supervision of other normal pregnancy, first trimester (principal); Z3A.09 9 weeks gestation of pregnancy
CPT/HCPCS: 76801

== ENCOUNTER → 2019-06-07 | Outpatient (CLI) | payer MEDICAID ==
[2019-06-07 13:06] LABS: ABSOLUTE EOSINOPHILS # (AUTO) 0.1 10^3/uL (0.0-0.6); ABSOLUTE LYMPHOCYTES (AUTO) 1.8 10^3/uL (0.5-4.7); ABSOLUTE MONOCYTES (AUTO) 0.4 10^3/uL (0.1-1.4); ABSOLUTE NEUT (AUTO) 4.7 10^3/uL (1.7-8.2); BASOPHILS % (AUTO) 0.7 % (0-2); EOSINOPHILS % (AUTO) 1.4 % (0-6); HEMATOCRIT 40.3 % (36.0-47.0); LYMPHOCYTES % (AUTO) 25.6 % (13-45); MEAN CORPUSCULAR HEMOGLOBIN 30.7 pg (27.0-33.4); MEAN CORPUSCULAR HGB CONC 34.7 g/dL (32.0-36.0); MEAN CORPUSCULAR VOLUME 89 fl (80-97); MONOCYTES % (AUTO) 5.8 % (3-13); PLATELET COUNT 315 10^3/uL (150-450); RED BLOOD COUNT 4.55 10^6/uL (3.72-5.28); RED CELL DISTRIBUTION WIDTH 13.1 % (11.5-14.0); SEGMENTED NEUTROPHILS % (AUTO) 66.5 % (42-78); TOTAL CELLS COUNTED % (AUTO) 100 %
[2019-06-07 13:27] LABS: ALBUMIN 4.5 g/dL (3.5-5.0); ALKALINE PHOSPHATASE 71 U/L (38-126); ANION GAP 9 (5-19); ASPARTATE AMINO TRANSFERASE 33 U/L (14-36); BILIRUBIN,TOTAL 0.3 mg/dL (0.2-1.3); BLOOD UREA NITROGEN 12 mg/dL (7-20); CALCIUM 10.1 mg/dL (8.4-10.2); CARBON DIOXIDE 28 mmol/L (22-30); CHLORIDE 104 mmol/L (98-107); GLUCOSE 88 mg/dL (75-110); POTASSIUM 4.3 mmol/L (3.6-5.0); TOTAL PROTEIN 7.7 g/dL (6.3-8.2)
== END ==
LOC: OD 11:52
PROVIDERS: ATTEND Nurse Practitioner Family
DX: Z11.3 Encounter for screening for infections with a predominantly sexual mode of transmission (principal); Z13.29 Encounter for screening for other suspected endocrine disorder; Z79.899 Other long term (current) drug therapy
CPT/HCPCS: 36415; 80053; 84443; 85025; 86592; 86701

== ENCOUNTER → 2020-03-07 | Outpatient (CLI) | payer BC, MEDICAID ==
--- NOTE | 2020-03-07 09:24 | WOMENS IMAGING REPORT ---
EXAM DESCRIPTION: 3D SCREENING MAMMO BILAT IMAGES COMPLETED DATE/TIME: 03/07/2020 8:57 am REASON FOR STUDY: Z12.31 ENCOUNTER FOR SCREENING MAMMOGRAM FOR MALIGNANT NEOPLASM OF BREAST Z12.31 ENCNTR SCREEN MAMMOGRAM FOR MALIGNANT NEOPLASM OF SUNNY COMPARISON: None. EXAM PARAMETERS: Views: Standard craniocaudal and mediolateral oblique views of each breast recorded using digital acquisition and breast tomosynthesis. Read with the assistance of CAD. .[facility] - [employer]inder Version 9.2 LIMITATIONS: None. FINDINGS: No suspicious masses, suspicious calcifications or architectural distortion. No areas of c oncern. IMPRESSION: NEGATIVE MAMMOGRAM. BIRADS 1. BREAST DENSITY: c. The breasts are heterogeneously dense, which may obscure small masses. BIRAD: ASSESSMENT: 1 NEGATIVE RECOMMENDATION: ROUTINE SCREENING COMMENT: The patient has been notified of the results by letter per MQSA requirements. Additional no tification policies are in place for contacting patient with suspicious or incomplete findings. Quality ID #[id number]: The [employer] recommends an annual screening mammogram for women aged 40 years or over. This facility utilizes a reminder system to ensure that all patients receive reminder letters, and/or direct phone calls for appointments. This includes reminders for routine scr eening mammograms, diagnostic mammograms, or other Breast Imaging Interventions when appropriate. Th is patient will be placed in the appropriate reminder system. TECHNICAL DOCUMENTATION: FINDING NUMBER: (1) ASSESSMENT: (1) JOB ID: [id number] 2010 [employer]- All Rights Reserved Reading location - IP/workstation name: [email or web address]
== END ==
LOC: WI 08:45
PROVIDERS: ATTEND Nurse Practitioner Family
DX: Z12.31 Encounter for screening mammogram for malignant neoplasm of breast (principal)
CPT/HCPCS: 77063; 77067